=== PATIENT | female | born 1975 | race Caucasian/White ===

== ENCOUNTER 2018-03-25 15:57 | Emergency (ER) | payer SELFPAY ==
[~2018-03-25] VITALS: Ht 160 cm; Wt 68.2 kg
[~2018-03-25 15:57] MED LIST: OXYC-158 PO; PREDNISONE
[2018-03-25] MEDS ORDERED: HYDR25TA PO (16:11)
[2018-03-25] MEDS ORDERED: AMLO-511 PO (16:11)
[2018-03-25] MEDS ORDERED: LISI-661 PO (16:11)
[2018-03-25 18:03] VITALS: BP 140/92
[2018-03-25] MEDS ORDERED: DEXAMETHASONE 4 MG TABLET PO ONE (18:15)
[2018-03-25] MEDS ORDERED: KETOROLAC TROMETHAMINE 30 MG/ML VIAL IM ONE (18:15)
== END 2018-03-25 19:18 | disposition home or self-care (01) ==
LOC: EMS 15:58
DX: J02.9 Acute pharyngitis, unspecified (principal); R03.0 Elevated blood-pressure reading, without diagnosis of hypertension; I48.91 Unspecified atrial fibrillation; J45.909 Unspecified asthma, uncomplicated; I25.2 Old myocardial infarction; D64.9 Anemia, unspecified; Z85.3 Personal history of malignant neoplasm of breast; Z91.041 Radiographic dye allergy status; Z91.040 Latex allergy status; Z79.899 Other long term (current) drug therapy
CPT/HCPCS: 96372; 99283; J1885; J8540

== ENCOUNTER 2018-03-27 21:16 | Emergency (ER) | payer MEDICAID ==
[~2018-03-27] VITALS: Ht 160 cm; Wt 70.5 kg
[~2018-03-27 21:16] MED LIST changes: +AMLO-511 PO; +HYDR25TA PO; +LISI-661 PO; -OXYC-158 PO; -PREDNISONE
[2018-03-27] MEDS ORDERED: KETOROLAC TROMETHAMINE 30 MG/ML VIAL IVP ONE (22:30)
[2018-03-27] MEDS ORDERED: CefTRIAXone SODIUM 2 GM in DEXTROSE 5%-WATER 20 ML IV ONE (22:30)
[2018-03-27] MEDS ORDERED: MethylPREDNISolone SOD SUCC 125 MG/2 ML VIAL IVP ONE (22:30)
[2018-03-27] MEDS ORDERED: SODIUM CHLORIDE 0.9% 1,000 ML IV ONE (22:30)
[2018-03-27 22:57] LABS: BASOPHILS % (AUTO) 0.2 % (0.0-2.0); EOSINOPHILS % (AUTO) 0.7 % (1.0-6.0); HEMATOCRIT 38.2 % (36-46); HEMOGLOBIN 12.5 g/dL (12.0-16.0); LYMPHOCYTES # (AUTO) 2.9 K/uL (1.0-4.8); LYMPHOCYTES % (AUTO) 25.2 % (22.0-44.0); MEAN CORPUSCULAR HEMOGLOBIN 27.6 pg (26.0-34.0); MEAN CORPUSCULAR HGB CONC 32.7 G/dL (31.0-37.0); MEAN CORPUSCULAR VOLUME 84 fL (80-100); MONOCYTES # (AUTO) 0.9 K/uL (0.1-1.0); MONOCYTES % (AUTO) 7.9 % (2.0-9.0); NEUTROPHILS # (AUTO) 7.6 K/uL (1.8-7.7); PLATELET COUNT (AUTO) 210 K/uL (150-450); RED BLOOD CELL COUNT(AUTO) 4.53 MIL/uL (4.00-5.20); RED CELL DISTRIBUTION WIDTH 13.9 % (11.5-14.5)
[2018-03-27 23:06] LABS: ANION GAP 9 mmol/L (8-16); CALCIUM, TOTAL 8.1 mg/dL (8.8-10.5); CARBON DIOXIDE 24 mmol/L (22-29); CHLORIDE 105 mmol/L (98-107); CREATININE 0.56 mg/dL (0.60-1.30); GLOMERULAR FILTR. RATE CALC > 60 mL/min (>60); GLUCOSE,RANDOM 90 mg/dL (70-110); POTASSIUM 3.9 mmol/L (3.5-5.1); SODIUM SERUM 138 mmol/L (136-145); UREA NITROGEN, BLOOD 17 mg/dL (7-18)
[2018-03-27 23:12] LABS: ALANINE AMINOTRANSFERASE 36 U/L (12-78); ALBUMIN 2.8 g/dL (3.4-5.0); ALKALINE PHOSPHATASE 71 U/L (46-116); ASPARTATE AMINOTRANSFERASE 24 U/L (15-37); BILIRUBIN,TOTAL 0.2 mg/dL (0.1-1.0); TOTAL PROTEIN, SERUM 6.4 g/dL (6.4-8.2)
[2018-03-28 00:44] VITALS: BP 133/85
== END 2018-03-28 01:11 | disposition home or self-care (01) ==
LOC: EMS 21:17
DX: J02.9 Acute pharyngitis, unspecified (principal); L53.9 Erythematous condition, unspecified; I48.91 Unspecified atrial fibrillation; J45.909 Unspecified asthma, uncomplicated; I25.2 Old myocardial infarction; G43.909 Migraine, unspecified, not intractable, without status migrainosus; C50.919 Malignant neoplasm of unspecified site of unspecified female breast; Z91.040 Latex allergy status
CPT/HCPCS: 36415; 80053; 85025; 87430; 96365; 96375; 99284; J0696; J1885; J2930; J7030; J7060